=== PATIENT | male | born 1995 | race Caucasian/White ===

== ENCOUNTER 2019-09-04 21:00 | Emergency (ER) | payer BC ==
[~2019-09-04] VITALS: Ht 182.9 cm; Wt 117.9 kg
[2019-09-04 21:02] VITALS: BP 105/82
[2019-09-04] MEDS ORDERED: ONDANSETRON 4 MG/2 ML VIAL IVP ONE (21:10)
[2019-09-04] MEDS ORDERED: NACL 0.9% 1,000 ML IV ONE (21:10)
[2019-09-04] MEDS ORDERED: MORPHINE SULFATE 4 MG/ML SYR IVP ONE (21:10)
--- NOTE | 2019-09-04 21:20 | NUR ---
PT BIBA C/O ETOH X TODAY. PT HAD A FALL AND HIT HIS FOREHEAD. HAS HEMATOMA ON FOREHEAD AND HAS ABRASION ON FOREHEAD WELL. NO LOC. A & O X4. STEADY GAIT. CLEAR SPEECH. 2MM PERRLA BRISK. VSS. DAD AT BEDSIDE. NKA. PMH: NONE.
--- NOTE | 2019-09-04 21:34 | NUR ---
PT WENT TO CT VIA W/C
--- NOTE | 2019-09-04 21:44 | NUR ---
PT RETURNED TO BED [address]
[2019-09-04 22:45] VITALS: BP 146/84
--- NOTE | 2019-09-04 22:45 | NUR ---
Patient discharged with v/s stable. Written and verbal after care instructions given and explained. Pt encouraged to use ice to help with swelling to face. Okay to alternate between iburofen and tylenol. Patient alert, oriented and verbalized understanding of instructions. Ambulatory with steady gait. All questions addressed prior to discharge. ID band removed. Patient advised to follow up with PMD. Rx of IBUPROFEN 600MG WAS given. Patient educated on indication of medication including possible reaction and side effects. Opportunity to ask questions provided and answered.
== END 2019-09-04 22:45 | disposition home or self-care (01) ==
LOC: MED 21:00
DX: S00.83XA Contusion of other part of head, initial encounter (principal); F10.129 Alcohol abuse with intoxication, unspecified; F17.210 Nicotine dependence, cigarettes, uncomplicated; W19.XXXA Unspecified fall, initial encounter; Y93.89 Activity, other specified; Y92.89 Other specified places as the place of occurrence of the external cause; Y99.8 Other external cause status
CPT/HCPCS: 70450; 96374; 96375; 99284; J2270; J2405; J7030